=== PATIENT | male | born 1990 | race Caucasian/White ===

== ENCOUNTER → 2017-05-18 | Outpatient (REF) | payer BC ==
[2017-05-18 10:10] LABS: SEMEN APPEARANCE OPAQUE (OPAQUE)
[2017-05-18 10:11] LABS: % NORMAL FORMS < 4 % (>=4); IMMOTILITY 91 %; NON PROGRESSIVE MOTILITY (c) 8 %; PROGRESSIVE MOTILITY (a) 1 % (>=32); SEMEN VISCOSITY LIQUID (LIQUID); SEMEN VOLUME 1.7 ml (4.0-5.0); SPERM ABNORMAL FORMS WBC'S NOTED; SPERM CONCENTRATION 17.6 M/ml (>=15.0); SPERM# 29.8 M/Ejac (>=39); TOTAL MOTILITY 9 % (>=40); TOTAL PROGRESSIVE SPERM 0.3 M/Ejac.; WBC CONCENTRATION <=1 M/ml (<=1 M/ml)
[2017-05-18 10:12] LABS: TOTAL FUNCTIONAL 0 M/Ejac.
== END ==
LOC: M LAB REF 09:26
DX: Z31.41 Encounter for fertility testing (principal)
CPT/HCPCS: 89320

== ENCOUNTER → 2017-07-20 | Outpatient (REF) | payer BC ==
[2017-07-20 19:46] LABS: SEMEN APPEARANCE OPAQUE (OPAQUE); SEMEN VISCOSITY LIQUID (LIQUID); SEMEN VOLUME 1.6 ml (4.0-5.0); SEMEN pH 8.5 (7.0-8.0)
[2017-07-20 19:47] LABS: % NORMAL FORMS 4 % (>=4); IMMOTILITY 64 %; NON PROGRESSIVE MOTILITY (c) 18 %; PROGRESSIVE MOTILITY (a) 18 % (>=32); SPERM ABNORMAL FORMS OTHER (SPECIFIY); SPERM CONCENTRATION 9.7 M/ml (>=15.0); TOTAL MOTILITY 36 % (>=40); WBC CONCENTRATION >1 M/ml (<=1 M/ml)
[2017-07-20 19:48] LABS: SPERM# 15.5 M/Ejac (>=39); TOTAL FUNCTIONAL 0.3 M/Ejac.; TOTAL PROGRESSIVE SPERM 2.7 M/Ejac.
== END ==
LOC: M LAB REF 17:28
DX: Z31.41 Encounter for fertility testing (principal)
CPT/HCPCS: 89320

== ENCOUNTER → 2018-05-30 | Outpatient (CLI) | payer BC ==
--- NOTE | 2018-06-04 20:42 | SLEEPHOME ---
DATE OF PROCEDURE: 05/30/2018 Ordered by: MARITZA García Diagnostic home sleep testing was performed due to concern for the obstructive sleep apnea syndrome. For testing, nocturnal T3 respiratory monitoring device was used. Continuous record was made of pulse, oxygen saturation, airflow, chest and abdominal strain and body position. 9 hours and 59 minutes of data were reviewed. There were 8 hours and 8 minutes marked as time in bed. During the interval marked time in bed, there were 143 respiratory events identified of 10 seconds in duration or greater for a respiratory event index of 17.6. The events were primarily obstructive. Pulse rate and saturation were unable to be recorded as the probe became dislodged. Testing was performed in both the supine and nonsupine positions. IMPRESSION: Abnormal home sleep testing with repetitive respiratory events and a respiratory event index of 17.6 is consistent with the obstructive sleep apnea syndrome. RECOMMENDATIONS The patient should be encouraged to undergo formal sleep evaluation and in laboratory pressure titration.
== END ==
LOC: M SLEEP HO 14:31
PROVIDERS: ATTEND Nurse Practitioner Family
DX: R40.0 Somnolence (principal)

== ENCOUNTER → 2018-09-13 | Outpatient (CLI) | payer BC ==
[2018-09-13 14:21] LABS: HEMOGLOBIN 14.1 g/dl (13.5-17.5); MEAN CORPUSCULAR HEMOGLOBIN 29.8 pg (27.0-33.0); MEAN CORPUSCULAR HGB CONC 32.8 g/dl (32.0-36.5); MEAN CORPUSCULAR VOLUME 90.9 fl (80.0-96.0); PLATELET COUNT, AUTOMATED 244 10^3/uL (150-450); RED BLOOD COUNT 4.73 10^6/uL (4.30-6.10); WHITE BLOOD COUNT 4.7 10^3/uL (4.0-10.0)
[2018-09-13 14:38] LABS: ALBUMIN 3.7 GM/DL (3.2-5.2); ALT/SGPT 52 U/L (12-78); BILIRUBIN,TOTAL 0.6 MG/DL (0.2-1.0); BLOOD UREA NITROGEN 11 MG/DL (7-18); CALCIUM LEVEL 8.9 MG/DL (8.5-10.1); CARBON DIOXIDE LEVEL 26 MEQ/L (21-32); CHLORIDE LEVEL 108 MEQ/L (98-107); CREATININE FOR GFR 0.75 MG/DL (0.70-1.30); GLOMERULAR FILTRATION RATE > 60.0 (>60); GLUCOSE, FASTING 98 MG/DL (70-100); POTASSIUM SERUM 4.1 MEQ/L (3.5-5.1); PROGESTERONE 0.21 NG/ML (0.28-1.22); SODIUM LEVEL 140 MEQ/L (136-145); TESTOSTERONE 351 NG/DL (241-827); TOTAL PROTEIN 7.4 GM/DL (6.4-8.2)
[2018-09-13 14:39] LABS: ESTRADIOL 30.9 PG/ML (<39.8); FOLLICLE STIMULATING HORMONE 1.6 mIU/mL (1.4-18.1); LUTEINIZING HORMONE 3.4 mIU/mL (1.5-9.3)
== END ==
LOC: M SMT 09:49
PROVIDERS: ATTEND Urology
DX: N46.9 Male infertility, unspecified (principal)

== ENCOUNTER → 2018-09-20 | Outpatient (REF) | payer BC | LOC: M LAB REF 09:43 | PROVIDERS: ATTEND Urology | DX: N46.9 Male infertility, unspecified (principal) ==

== ENCOUNTER → 2020-10-08 | Outpatient (REF) | payer BC ==
[2020-10-08 12:57] LABS: FERRITIN 329 NG/ML (26-388); IRON (FE) 84 UG/DL (65-175); PERCENT SATURATION 32.8 % (19.7-50.0); TOTAL IRON BINDING CAPACITY 256 UG/DL (250-450)
[2020-10-08 13:15] LABS: HEPATITIS B SURFACE ANTIGEN NEGATIVE (NEGATIVE)
[2020-10-08 13:42] LABS: HEPATITIS B CORE ANTIBODY IGM NEGATIVE (NEGATIVE)
[2020-10-08 13:45] LABS: HEPATITIS A ANTIBODY IGM NEGATIVE (NEGATIVE)
== END ==
LOC: M LAB REF 11:48
PROVIDERS: ATTEND Internal Medicine
DX: R74.01 Elevation of levels of liver transaminase levels (principal)

== ENCOUNTER → 2020-10-13 | Outpatient (CLI) | payer BC ==
--- NOTE | 2020-10-13 10:07 | REP ---
INDICATION: ELEVATED LFT'S COMPARISON: None. TECHNIQUE: Real time contrears scale ultrasound examination using curved array transducer. FINDINGS: Liver is mildly echogenic suggesting fatty infiltration. Pancreas is incompletely evaluated due to interposed bowel gas. The gallbladder is normal and without gallstones, wall thickening, or pericholecystic fluid. No biliary ductal dilatation is appreciated and the common bile duct measures 5.7 mm diameter. Right kidney is normal in reniform shape without hydronephrosis and measures 13.1 x 6.5 x 5.1 cm. No ascites in the visualized right upper quadrant. IMPRESSION: Hepatosteatosis <Electronically signed by Clayton Serna > 10/13/20 1005
== END ==
LOC: M RAD 09:03
PROVIDERS: ATTEND Internal Medicine
DX: K76.0 Fatty (change of) liver, not elsewhere classified (principal); R94.5 Abnormal results of liver function studies

== ENCOUNTER 2021-04-27 09:25 | Emergency (ER) | payer BC ==
[~2021-04-27] VITALS: Ht 193 cm; Wt 159.7 kg
[2021-04-27] MEDS ORDERED: CYCL-707 (09:32)
[2021-04-27] MEDS ORDERED: METH4PACK (09:32)
[2021-04-27 10:07] LABS: BASO # 0.1 10^3/uL (0.0-0.2); BASO % 0.6 % (0.0-1.0); EOS # 0.1 10^3/uL (0.0-0.5); EOS % 0.6 % (0.0-3.0); HEMATOCRIT 48.7 % (42.0-52.0); HEMOGLOBIN 15.9 g/dl (13.5-17.5); LYMPH # 2.4 10^3/uL (1.5-5.0); LYMPH % 24.4 % (24.0-44.0); MEAN CORPUSCULAR HEMOGLOBIN 29.1 pg (27.0-33.0); MEAN CORPUSCULAR HGB CONC 32.6 g/dl (32.0-36.5); MEAN CORPUSCULAR VOLUME 89.2 fl (80.0-96.0); MONO # 0.8 10^3/uL (0.0-0.8); MONO % 7.9 % (2.0-8.0); NEUTROPHILS # 6.6 10^3/uL (1.5-8.5); NEUTROPHILS % 66.1 % (36.0-66.0); PLATELET COUNT, AUTOMATED 312 10^3/uL (150-450); RED BLOOD COUNT 5.46 10^6/uL (4.30-6.10)
[2021-04-27 10:39] LABS: CK-MB VALUE MASS 5.1 NG/ML (<3.6); MB/CK RELATIVE INDEX 2.88 (< OR =4)
[2021-04-27 10:46] LABS: ALBUMIN 3.8 GM/DL (3.2-5.2); ALT/SGPT 52 U/L (12-78); BILIRUBIN,DIRECT 0.1 MG/DL (0.0-0.2); BILIRUBIN,TOTAL 0.5 MG/DL (0.2-1.0); BLOOD UREA NITROGEN 15 MG/DL (7-18); CARBON DIOXIDE LEVEL 32 MEQ/L (21-32); CHLORIDE LEVEL 105 MEQ/L (98-107); CREATININE FOR GFR 0.88 MG/DL (0.70-1.30); GLOMERULAR FILTRATION RATE > 60.0 (>60); GLUCOSE, FASTING 81 MG/DL (70-100); LIPASE 136 U/L (73-393); POTASSIUM SERUM 4.2 MEQ/L (3.5-5.1); SODIUM LEVEL 140 MEQ/L (136-145); TOTAL PROTEIN 7.7 GM/DL (6.4-8.2)
[2021-04-27 11:18] LABS: CK-MB VALUE MASS 4.9 NG/ML (<3.6); MB/CK RELATIVE INDEX 2.95 (< OR =4)
[2021-04-27 12:33] VITALS: BP 109/53
== END 2021-04-27 12:36 | disposition home or self-care (01) ==
LOC: M ED 09:25
DX: R07.9 Chest pain, unspecified (principal); R94.31 Abnormal electrocardiogram [ECG] [EKG]

== ENCOUNTER → 2022-05-09 | Outpatient (REF) | payer BC ==
[~2022-05-09] MED LIST: CYCL-707; METH4PACK
[2022-05-09 18:51] LABS: HEMATOCRIT 43.2 % (42.0-52.0); HEMOGLOBIN 14.3 g/dl (13.5-17.5); MEAN CORPUSCULAR HEMOGLOBIN 29.7 pg (27.0-33.0); MEAN CORPUSCULAR HGB CONC 33.1 g/dl (32.0-36.5); MEAN CORPUSCULAR VOLUME 89.8 fl (80.0-96.0); PLATELET COUNT, AUTOMATED 283 10^3/uL (150-450); RED BLOOD COUNT 4.81 10^6/uL (4.30-6.10); WHITE BLOOD COUNT 7.8 10^3/uL (4.0-10.0)
== END ==
LOC: M LAB REF 17:39
PROVIDERS: ATTEND Physician Assistant
DX: M25.50 Pain in unspecified joint (principal)

== ENCOUNTER 2023-02-08 11:30 | Emergency (ER) | payer BC ==
[~2023-02-08] VITALS: Ht 193 cm; Wt 166.2 kg
[2023-02-08] MEDS ORDERED: ESCI5SOL3 PO (11:46)
[2023-02-08 12:27] LABS: BASO % 0.4 % (0.0-1.0); EOS # 0.2 10^3/uL (0.0-0.5); HEMATOCRIT 43.5 % (42.0-52.0); HEMOGLOBIN 14.4 g/dl (13.5-17.5); LYMPH # 2.3 10^3/uL (1.5-5.0); LYMPH % 32.3 % (24.0-44.0); MEAN CORPUSCULAR HEMOGLOBIN 29.3 pg (27.0-33.0); MEAN CORPUSCULAR HGB CONC 33.1 g/dl (32.0-36.5); MEAN CORPUSCULAR VOLUME 88.4 fl (80.0-96.0); MONO # 0.6 10^3/uL (0.0-0.8); MONO % 8.5 % (2.0-8.0); NEUTROPHILS # 3.9 10^3/uL (1.5-8.5); NEUTROPHILS % 55.7 % (36.0-66.0); PLATELET COUNT, AUTOMATED 265 10^3/uL (150-450); RED BLOOD COUNT 4.92 10^6/uL (4.30-6.10); WHITE BLOOD COUNT 7.1 10^3/uL (4.0-10.0)
[2023-02-08 12:39] LABS: INR 1.04; PROTHROMBIN TIME 13.3 SECONDS (12.5-14.5)
[2023-02-08 12:40] LABS: PARTIAL THROMBOPLASTIN TIME 26.9 SECONDS (24.8-34.2)
[2023-02-08 12:59] LABS: LIPASE 45 U/L (12-53)
[2023-02-08 13:01] LABS: ALBUMIN 3.8 G/DL (3.2-5.2); ALKALINE PHOSPHATASE 68 U/L (46-116); ALT/SGPT 57 U/L (7.0-40); AST/SGOT 28 U/L (<34); BILIRUBIN,DIRECT 0.1 MG/DL (<0.4); BILIRUBIN,TOTAL 0.4 MG/DL (0.3-1.2); BLOOD UREA NITROGEN 10 MG/DL (9-23); CALCIUM LEVEL 8.9 MG/DL (8.5-10.1); CARBON DIOXIDE LEVEL 27 MMOL/L (20-31); CHLORIDE LEVEL 106 MMOL/L (98-107); CK-MB VALUE MASS 5.5 NG/ML (<3.6); CPK CREATINE PHOSPHOKINASE 425 U/L (46-171); CREATININE FOR GFR 0.69 MG/DL (0.70-1.30); GLOMERULAR FILTRATION RATE > 60.0 (>60); GLUCOSE, FASTING 91 MG/DL (60-100); MB/CK RELATIVE INDEX 1.29 (< OR =4); POTASSIUM SERUM 4.3 MMOL/L (3.5-5.1); SODIUM LEVEL 138 MMOL/L (136-145); TOTAL PROTEIN 7.2 G/DL (5.7-8.2)
[2023-02-08 13:59] LABS: CK-MB VALUE MASS 5.6 NG/ML (<3.6)
[2023-02-08 14:00] LABS: MB/CK RELATIVE INDEX 1.42 (< OR =4)
[2023-02-08 14:21] VITALS: BP 145/83; TEMP 97.2; O2SAT 100
== END 2023-02-08 14:31 | disposition home or self-care (01) ==
LOC: M ED 11:30
DX: R07.9 Chest pain, unspecified (principal); I45.10 Unspecified right bundle-branch block; Z79.899 Other long term (current) drug therapy

== ENCOUNTER 2023-03-25 01:44 | Emergency (ER) | payer BC ==
[~2023-03-25] VITALS: Ht 193 cm; Wt 160.6 kg
[~2023-03-25 01:44] MED LIST changes: +ESCI5SOL3 PO
[2023-03-25 02:30] LABS: BASO # 0.1 10^3/uL (0.0-0.2); BASO % 0.7 % (0.0-1.0); EOS # 0.3 10^3/uL (0.0-0.5); EOS % 3.1 % (0.0-3.0); HEMATOCRIT 42.4 % (42.0-52.0); HEMOGLOBIN 14.1 g/dl (13.5-17.5); LYMPH # 2.6 10^3/uL (1.5-5.0); LYMPH % 29.2 % (24.0-44.0); MEAN CORPUSCULAR HEMOGLOBIN 30.3 pg (27.0-33.0); MEAN CORPUSCULAR HGB CONC 33.3 g/dl (32.0-36.5); MEAN CORPUSCULAR VOLUME 91.2 fl (80.0-96.0); MONO # 0.7 10^3/uL (0.0-0.8); MONO % 7.5 % (2.0-8.0); NEUTROPHILS # 5.2 10^3/uL (1.5-8.5); NEUTROPHILS % 59.4 % (36.0-66.0); PLATELET COUNT, AUTOMATED 259 10^3/uL (150-450); RED BLOOD COUNT 4.65 10^6/uL (4.30-6.10); WHITE BLOOD COUNT 8.8 10^3/uL (4.0-10.0)
[2023-03-25 02:55] LABS: INR 0.99; LIPASE 55 U/L (12-53); PROTHROMBIN TIME 12.8 SECONDS (12.5-14.5)
[2023-03-25 02:57] LABS: ALBUMIN 3.3 G/DL (3.2-5.2); ALKALINE PHOSPHATASE 69 U/L (46-116); ALT/SGPT 53 U/L (7.0-40); AST/SGOT 30 U/L (<34); BILIRUBIN,DIRECT 0.1 MG/DL (<0.4); BILIRUBIN,TOTAL 0.4 MG/DL (0.3-1.2); BLOOD UREA NITROGEN 14 MG/DL (9-23); CALCIUM LEVEL 8.8 MG/DL (8.5-10.1); CARBON DIOXIDE LEVEL 29 MMOL/L (20-31); CHLORIDE LEVEL 105 MMOL/L (98-107); CK-MB VALUE MASS 6.5 NG/ML (<3.6); CREATININE FOR GFR 0.82 MG/DL (0.70-1.30); GLOMERULAR FILTRATION RATE > 60.0 (>60); GLUCOSE, FASTING 104 MG/DL (60-100); POTASSIUM SERUM 3.7 MMOL/L (3.5-5.1); SODIUM LEVEL 139 MMOL/L (136-145); TOTAL PROTEIN 6.9 G/DL (5.7-8.2)
[2023-03-25 03:00] LABS: CPK CREATINE PHOSPHOKINASE 448 U/L (46-171); MB/CK RELATIVE INDEX 1.45 (< OR =4)
[2023-03-25 03:13] LABS: RSV AMPLIFICATION NEGATIVE (NEGATIVE)
[2023-03-25] MEDS ORDERED: NS 1,000 ML IV ONE (03:45)
[2023-03-25 05:00] VITALS: BP 148/83; O2SAT 98
[2023-03-25 05:10] VITALS: TEMP 98
== END 2023-03-25 05:12 | disposition home or self-care (01) ==
LOC: M ED 01:44
DX: F41.0 Panic disorder [episodic paroxysmal anxiety] (principal); I45.10 Unspecified right bundle-branch block; Z79.899 Other long term (current) drug therapy